=== PATIENT | male | born 1970 ===

== ENCOUNTER → 2022-04-17 | Outpatient (CLI) | payer OTHER | LOC: LAB SHORT 09:53 → LAB 09:53 | DX: L08.0 Pyoderma (principal) | CPT/HCPCS: 87070; 87205 ==

== ENCOUNTER → 2022-05-01 | Outpatient (CLI) | payer OTHER | LOC: LAB 14:55 → LAB SHORT 14:55 | DX: L72.9 Follicular cyst of the skin and subcutaneous tissue, unspecified (principal) | CPT/HCPCS: 88304 ==